=== PATIENT | male | born 1965 | race Caucasian/White ===

== ENCOUNTER → 2023-10-15 12:23 | Outpatient (CLI) | payer BC, SELFPAY ==
[2023-10-15 13:22] LABS: Basophils # 0.1 K/mm3 (0-0.2); Basophils % 1.4 % (0.1-2.0); Eosinophils # 0.2 K/mm3 (0.0-0.4); Eosinophils % 2.8 % (0.1-12.0); Hematocrit 46.6 % (42.0-52.0); Hemoglobin 16.2 g/dL (14.1-18.0); Lymphocytes # 2.7 K/mm3 (0.7-4.5); Lymphocytes % 40.8 % (10-50); Mean Corpuscular HGB Conc 34.7 g/dL (31.8-35.4); Mean Corpuscular Hemoglobin 33.3 pg (27.0-31.2); Mean Corpuscular Volume 95.9 fl (80-94); Mean Platelet Volume 8.6 fl (7.4-10.4); Monocytes # 0.5 K/mm3 (0.1-1.0); Monocytes % 7.6 % (1.7-9.3); Neutrophils # 3.2 K/mm3 (1.8-7.8); Neutrophils % 47.5 % (37.0-80.0); Platelet Count 264 K/mm3 (142-424); Red Blood Count 4.86 M/mm3 (4.60-6.20); Red Cell Distribution Width 12.9 % (11.5-17.5); White Blood Count 6.7 K/mm3 (4.8-10.8)
[2023-10-15 13:48] LABS: Alanine Aminotransferase 37 U/L (12-78); Albumin Level 4.4 g/dl (3.5-5.0); Albumin/Globulin Ratio 1.2 (1.1-1.8); Anion Gap 14.6 mEq/L (5-15); Aspartate Amino Transferase 42 U/L (17-59); Bilirubin,Total 0.6 mg/dl (0.2-1.3); Blood Urea Nitrogen 19 mg/dl (9-20); Calcium 8.9 mg/dl (8.4-10.2); Carbon Dioxide 26 mmol/L (22.0-30.0); Chloride 102 mmol/L (98-107); Cholesterol 181 mg/dl (140-200); Estimated Glomerular Filt Rate 62 ml/min (>60); GFR (African American) 75 ML/MIN (>60); Globulin 3.6 g/dL (1.3-3.2); Glucose 85 mg/dl (74-100); HDL Cholesterol 42 mg/dl (40-60); Potassium 4.6 mmoL/L (3.5-5.1); Sodium 138 mmol/L (136-145); Triglycerides 149 mg/dl (30-150); VLDL Cholesterol 30 mg/dL (0-40)
[2023-10-15 13:49] LABS: Alkaline Phosphatase 88 U/L (38-126); Chol/HDL Ratio 4.3 (1-3.5)
[2023-10-15 13:57] LABS: Erythrocyte Sedimentation Rate 13 mm/hr (0-20)
[2023-10-15 14:17] LABS: Prostate Specific Ag Screen 1.1 ng/ml (0.0-4.0); Thyroid Stimulating Hormone 1.04 uIU/mL (0.465-4.68)
[2023-10-15 14:53] LABS: Vitamin B12 512 pg/mL (239-931)
[2023-10-15 20:34] LABS: Hemoglobin A1C 5.3 % (4.0-6.0)
[2023-10-18 15:25] LABS: Albumin 3.9 g/dL (2.9-4.4); Alpha-1-Globulin 0.2 g/dL (0.0-0.4); Alpha-2-Globulin 0.7 g/dL (0.4-1.0); Gamma Globulin 1.8 g/dL (0.4-1.8); Protein, Total 7.7 g/dL (6.0-8.5)
== END ==
PROVIDERS: PCP Internal Medicine; Visit Provider Internal Medicine
DX: R53.83 Other fatigue (principal); L40.1 Generalized pustular psoriasis; E78.5 Hyperlipidemia, unspecified; G60.9 Hereditary and idiopathic neuropathy, unspecified; K21.9 Gastro-esophageal reflux disease without esophagitis; M47.812 Spondylosis without myelopathy or radiculopathy, cervical region; N40.1 Benign prostatic hyperplasia with lower urinary tract symptoms; Z12.5 Encounter for screening for malignant neoplasm of prostate
CPT/HCPCS: 80053; 80061; 82607; 82746; 83036; 84155; 84165; 84443; 85025; 85651; G0103

== ENCOUNTER 2025-04-14 10:36 | Outpatient (CLI) | payer BC, SELFPAY ==
--- OUTSIDE RECORDS SUMMARY | 2025-04-14 10:39 | XMS_ITS | Data Portability ---
Author Organization [facility] ONIEL Antoine [place] CLOSED Address [address] [facility] [facility] [address] [place] [address] Care Team Providers Care Gymnastics Instructor Name Role Phone AARON DUQUE Primary Care Provider [phone] YENNY NEVAREZ Customer Management Specialist Assessment No assessment recorded. Plan of Treatment Reminders Order Date Submit Date Provider Last Modified By Organization Details Last Modified Time Details Appointments FOLLOW UP DAK 2025 10:10A M YENNY NEVAREZ MD Not available Not available Not available Lab CBC w/ auto diff 2024 025 [id number] [facility], [address] [place] [address], [phone], 04/03/2025 15:55:04 CMP, serum or plasma 2024 025 [email or web address] [facility], [address] [place] [address], [phone], 04/03/2025 15:05:22 Mycobacte rium tuberculo sis stimulate d gamma interfero n, qual, blood 2024 025 [email or web address] [facility], [address] [place] [address], [phone], 04/03/2025 15:05:22 CMP, serum or plasma 2023 024 [email or web address] [facility], [address] [place] [address], [phone], 01/17/2024 08:01:50 CBC w/ auto diff [address] [facility], [address] [place] [address], [phone], 01/17/2024 08:01:50 Mycobacte rium tuberculo sis stimulate d gamma interfero n, qual, blood [address] [facility], [address] [place] [address], [address], 01/17/2024 08:01:50 Referral None recorded. Procedures None recorded. Surgeries None recorded. Imaging None recorded. Medication Orders None recorded. Patient TargetsNo targets recorded. Patient InstructionsNo instructions recorded. Reason for Referral None Reported. Procedures Surgical History Date Name Laterality Status Provider Name and Address Organization Details Recorded Time 01/16/20 25 Destruction Premalignant Lesion(s) completed Judy Muniz [facility] 01/15/2025 11:40:41 Imaging Results None recorded. Procedure Notes None recorded. Medical Equipment None Reported. Allergies No known drug allergies Medications Name Sig Start Date Stop Date Status Note LastModified by Organization Details LastModified Time Humira 40 mg/0.8 mL subcutaneous syringe kit active Not Available Not Available Not Available aspirin active Not Available Not Avail able Not Available Lipitor active Not Available Not Avail able Not Available omeprazole active Not Available Not Av ailable Not Available Humira(CF) 40 mg/0.4 mL subcutaneous syringe kit INJECT 40MG SUBCUTANEOU SLY EVERY OTHER WEEK 2024 active Not Available Not Available Not Avai lable Humira(CF) Pen 40 mg/0.4 mL subcutaneous kit INJECT 1 PEN UNDER THE SKIN EVERY 14 DAYS. 2022 active Not Available Not Available Not Avai lable Vitals None Recorded Social History None recorded. Functional Status None recorded. Mental Status None recorded. Family History Nothing Reported. Medical History No medical history recorded. Past Encounters Encounter ID Performer Location Encounter Start Date Encounter Closed Date Diagnosis/Indication Diagnosis SNOMED-CT Code Diagnosis ICD10 Code Diagnosis Note [id number] YENNY NEVAREZ MD [address] [address] [place] [address] 01/10/2024 10:37:09 01/10/2024 11:23:31 History of malignant neoplasm of skin 967969181 Z85.828 L90.5 - No evidence of recurrence today - Call with any worrisome lesions or if treated lesions return - Return at regular intervals for skin exam as recommende d Multiple b enign melanocytic nevi [id number] D22.5 - Benign lesions seen on exam today- SPF 30 or higher broad-spec trum sunscreen recommende d with re-applica tion every 2 hours- Discussed sun protection measures, including wide-brimm ed hat, sun-protec tive clothing, and avoidance of sun during peak hours of 10am-4pm- Avoid tanning beds as these can increase the chances of all 3 types of skin cancer- Instructed to monitor for changes and to call us for appointmen t with any changing or worrisome lesions Seborrheic keratosis 394 823242 L82.1 - Benign overgrowth s of skin - Hereditary Senile angioma 8566729 I 78.1 - Benign blood vessel growths - Hereditary Solar lentigo 64539026 L 81.4 - Benign brown spots - Sun-induce d Psoriasis 6027211 L40.0 Recommend continue HumiraAnnu al labs needed, slip given, will refill rx Humira once recievedDi scussed biosimilar Fup with change or concerns Actinic keratosis 336678 [address] today, no wound careFup with change or concerns [id number] YENNY NEVAREZ MD [address] [address] [place] [address] 01/15/2025 11:06:26 01/15/2025 12:01:14 History of malignant neoplasm of skin 731401354 Z85.828 L90.5 - No evidence of recurrence today - Call with any worrisome lesions or if treated lesions return - Return at regular intervals for skin exam as recommende d Multiple b enign melanocytic nevi 824535587 D22.5 - Benign lesions seen on exam today- SPF 30 or higher broad-spec trum sunscreen recommende d with re-applica tion every 2 hours- Discussed sun protection measures, including wide-brimm ed hat, sun-protec tive clothing, and avoidance of sun during peak hours of 10am-4pm- Instructed to monitor for changes and to call us for appointmen t with any changing or worrisome lesions Seborrheic keratosis 394 774880 L82.1 - Benign overgrowth s of skin - Hereditary Senile angioma 1699040 I 78.1 - Benign blood vessel growths - Hereditary Solar lentigo 91184495 L 81.4 - Benign brown spots - Sun-induce d Psoriasis 7401864 L40.0 The condition was discussed further.Re commend continuing Humira.Lab slip given CBC CMP qtb gold, will RF rx once received. Pt will bring to PCP appt.FUP with changes or concerns. Actinic keratosis [address]57[address] No wound care. FUP with changes or concerns. Health Concerns Section Related Observation LastModified by Organization Detai ls LastModified Time None Recorded Concern Status LastModified by Organization Details LastModified Time None Recorded Advance Directives Directive None Recorded Payers Insurance Date Sequence Insurance Name Policy Number Policy Evans Covered Member ID Evans Member ID Guarantor Name 01/10/2024 1 *SELF PAY* To alexis Murray 01/19/2025 1 [place] [id number] Zoila Murray [id number] Marino Murray Notes Date Note Type Note Provider Name and Address Organization Details Recorded Time 01/10/2024 text/html Annual skin exam Hx of BCC- L chest, R posterior shoulderHx of Psoriasis, Humira 40mg injection [id number] YENNY NEVAREZ MD [address] [place], [address], [facility] 01/10/2024 11:57:23 01/15/2025 text/html annualhx of BCC- L chest, R posterior shoulderhx of psoriasis - Humira 40mg injection [id number] spot on R nosespot on L postauricular YENNY NEVAREZ MD [address] [place], [address], [facility] 01/15/2025 11:50:54
[2025-04-14 11:32] LABS: Basophils # 0.1 K/mm3 (0-0.2); Basophils % 0.7 % (0.1-2.0); Eosinophils # 0.2 Kmm3 (0.0-0.4); Eosinophils % 2.1 % (0.1-12.0); Hematocrit 42.7 % (42.0-52.0); Hemoglobin 14.6 g/dL (14.1-18.0); Immature Granulocytes # 0.01 10^3uL; Immature Granulocytes % 0.1 %; Lymphocytes # 3.4 K/mm3 (0.7-4.5); Lymphocytes % 42.5 % (10-50); Mean Corpuscular HGB Conc 34.2 g/dL (31.8-35.4); Mean Corpuscular Hemoglobin 31.3 pg (27.0-31.2); Mean Corpuscular Volume 91.6 fl (80-94); Mean Platelet Volume 9.6 fl (7.4-10.4); Monocytes # 0.6 K/mm3 (0.1-1.0); Monocytes % 7.9 % (1.7-9.3); Neutrophils # 3.8 K/mm3 (1.8-7.8); Neutrophils % 46.7 % (37.0-80.0); Nucleated Red Blood Cells # 0 10^3/uL; Nucleated Red Blood Cells % 0 %; Platelet Count 260 K/mm3 (142-424); Red Blood Count 4.66 M/mm3 (4.60-6.20); Red Cell Distribution Width 12.4 % (11.5-17.5); Red Cell Distribution Width-SD 41.6 fL; White Blood Count 8.1 K/mm3 (4.8-10.8)
[2025-04-14 12:19] LABS: Alanine Aminotransferase 22 U/L (12-78); Albumin Level 4.1 g/dl (3.5-5.0); Albumin/Globulin Ratio 1.1 (1.1-1.8); Alkaline Phosphatase 118 U/L (38-126); Anion Gap 9.5 mEq/L (5-15); Aspartate Amino Transferase 32 U/L (17-59); Bilirubin,Total 0.5 mg/dl (0.2-1.3); Blood Urea Nitrogen 15 mg/dl (9-20); Calcium 8.8 mg/dl (8.4-10.2); Carbon Dioxide 27 mmol/L (22.0-30.0); Chloride 104 mmol/L (98-107); Estimated Glomerular Filt Rate 69 ml/min (>60); GFR (African American) 83 ML/MIN (>60); Globulin 3.9 g/dL (1.3-3.2); Glucose 119 mg/dl (74-100); Potassium 4.5 mmoL/L (3.5-5.1); Sodium 136 mmol/L (136-145)
[2025-04-17 19:18] LABS: QuantiFERON-TB Gold Plus Negative (Negative)
== END 2025-04-14 23:59 | disposition home or self-care (01) ==
LOC: LAB 10:38
PROVIDERS: PCP Internal Medicine; Visit Provider Dermatology Procedural Dermatology
DX: L40.0 Psoriasis vulgaris (principal)
CPT/HCPCS: 36415; 80053; 85025; 86480

== ENCOUNTER 2025-08-24 10:33 | Outpatient (CLI) | payer BC, SELFPAY ==
--- NOTE | 2025-08-24 10:35 | XR_ITS ---
FINAL REPORT CLINICAL HISTORY: Ankle injury, stepped in a hole and twisted ankle, swelling COMPARISON: None FINDINGS: Three views of the right ankle show no evidence of acute displaced fracture or dislocation of the visualized bony architecture. The joint spaces appear normal. IMPRESSION: Unremarkable exam. Reviewed, Interpreted and Dictated by Lian Castillo MD Transcribed by Julianna Baron Authenticated and [facility]
--- OUTSIDE RECORDS SUMMARY | 2025-08-24 10:36 | XMS_ITS | Data Portability ---
Author Organization [facility] LEO [place] CLOSED Address [address] [facility] [address] [place] [address] Care Team Providers Care Foreign Service Teacher Name Role Phone AARON DUQUE Primary Care Provider [phone] YENNY NEVAREZ 3Rd Mate Assessment No assessment recorded. Plan of Treatment Reminders Order Date Submit Date Provider Last Modified By Organization Details Last Modified Time Details Appointments FOLLOW UP DAK 2025 10:10A M YENNY NEVAREZ MD Not available Not available Not available Lab CBC w/ auto diff [address] [facility], [address] [place] [address], [phone], 04/03/2025 15:55:04 CMP, serum or plasma [address] [facility], [address] [place] [address], [phone], 04/03/2025 15:05:22 Mycobacte rium tuberculo sis stimulate d gamma interfero n, qual, blood [address] [facility], [address] [place] [address], [address], 04/03/2025 15:05:22 CMP, serum or plasma [email or web address] [facility], [address] [place] [address], [phone], 01/17/2024 08:01:50 CBC w/ auto diff [address] [facility], [address] [place] [address], [address], 01/17/2024 08:01:50 Mycobacte rium tuberculo sis stimulate d gamma interfero n, qual, blood [address] [facility], [address] [place] [address], [phone], 01/17/2024 08:01:50 Referral None recorded. Procedures None recorded. Surgeries None recorded. Imaging None recorded. Medication Orders None recorded. Patient TargetsNo targets recorded. Patient InstructionsNo instructions recorded. Reason for Referral None Reported. Results Created Date Observation Date Name Description Value Unit Range Abnormal Flag Note LastModifiedBy Organization Detail LastModifiedTime Result Notes None recorded. Procedures Surgical History Date Name Laterality Status Provider Name and Address Organization Details Recorded Time 01/16/20 25 Destruction Premalignant Lesion(s) completed Judy Muniz [facility] 01/15/2025 11:40:41 Imaging Results None recorded. [...] Not Available Not Available Not Avai lable Amjevita(CF) 40 mg/0.8 mL subcutaneous syringe Inject 40mg SQ every other week 2024 active Not Available Not Available Not Avai lable Amjevita(CF) 40 mg/0.4 mL subcutaneous syringe Inject 40 mg every 2 weeks by subcutaneou s route. 2024 active Not Available Not Available Not Avai lable Vitals None Recorded Social History None recorded. Functional Status None recorded. Mental Status None recorded. Family History Nothing Reported. Medical History No medical history recorded. Past Encounters Encounter ID Performer Location Encounter Start Date Encounter Closed Date Diagnosis/Indication Diagnosis SNOMED-CT Code Diagnosis ICD10 Code Diagnosis IMO Codes Diagnosis Note [id number] YENNY NEVAREZ MD [address] [address] 01/10/2024 10:37:09 01/10/2024 11:23:31 History of malignant neoplasm of skin 533461698 Z85.828 L90.5 - No evidence of recurrence today - Call with any worrisome lesions or if treated lesions return - Return at regular intervals for skin exam as recommende d Multiple b enign melanocytic nevi 928656133 D22.5 - Benign lesions seen on exam [...] changing or worrisome lesions Seborrheic keratosis 394 715218 L82.1 - Benign overgrowth s of skin - Hereditary Senile angioma 9805899 I 78.1 - Benign blood vessel growths - Hereditary Solar lentigo 02159566 L 81.4 - Benign brown spots - Sun-induce d Psoriasis 3327495 L40.0 Recommend continue HumiraAnnu al labs needed, slip given, will refill rx Humira once recievedDi scussed biosimilar Fup with change or concerns Actinic keratosis 354667 [address]57[address]2 today, no wound careFup with change or concerns [id number] YENNY NEVAREZ MD [address] [address] 01/15/2025 11:06:26 01/15/2025 12:01:14 History of malignant neoplasm of skin 035844920 Z85.828 L90.5 - No evidence of recurrence today - Call with any worrisome lesions or if treated lesions return - Return at regular intervals for skin exam as recommende d Multiple b enign melanocytic nevi 279055064 D22.5 - Benign lesions seen on exam [...] changing or worrisome lesions Seborrheic keratosis 394 136881 L82.1 - Benign overgrowth s of skin - Hereditary Senile angioma 7103241 I 78.1 - Benign blood vessel growths - Hereditary Solar lentigo 78089658 L 81.4 - Benign brown spots - Sun-induce d Psoriasis 0580303 L40.0 The condition was discussed further.Re commend [...] To alexis Murray 01/19/2025 1 [place] [id number] Zoila Murray [id number] 82 Marino Murray Notes Date Note Type Note Provider Name and Address Organization Details Recorded Time 01/10/2024 text/html Annual skin examHx of BCC- L chest, R posterior shoulderHx of Psoriasis, Humira 40mg injection [id number] YENNY NEVAREZ MD [address] [place], [address], [facility] 01/10/2024 11:57:23 01/15/2025 text/html annualhx of BCC- L chest, R posterior shoulderhx of psoriasis - Humira 40mg injection [id number] spot on R nosespot on L postauricular YENNY NEVAREZ MD [address] [place], [address], [facility] 01/15/2025 11:50:54
== END 2025-08-24 23:59 | disposition home or self-care (01) ==
LOC: RAD 10:33
PROVIDERS: PCP Internal Medicine; Visit Provider Internal Medicine
DX: S99.911A Unspecified injury of right ankle, initial encounter (principal); W18.42XA Slipping, tripping and stumbling without falling due to stepping into hole or opening, initial encounter
CPT/HCPCS: 73610

== ENCOUNTER 2025-09-27 10:20 | Outpatient (CLI) | payer BC, SELFPAY ==
[2025-09-27 14:06] LABS: Hematocrit 43.5 % (42.0-52.0); Hemoglobin 14.8 g/dL (14.1-18.0); Immature Granulocytes % 0.3 %; Mean Corpuscular HGB Conc 34.0 g/dL (31.8-35.4); Mean Corpuscular Hemoglobin 31.8 pg (27.0-31.2); Mean Corpuscular Volume 93.3 fl (80-94); Nucleated Red Blood Cells % 0 %; Platelet Count 307 K/mm3 (142-424); Red Blood Count 4.66 M/mm3 (4.60-6.20); Red Cell Distribution Width-SD 42.5 fL; White Blood Count 9.6 K/mm3 (4.8-10.8)
[2025-09-27 14:37] LABS: Alanine Aminotransferase 27 U/L (12-78); Albumin Level 4.8 g/dl (3.5-5.0); Albumin/Globulin Ratio 1.2 (1.1-1.8); Alkaline Phosphatase 150 U/L (38-126); Anion Gap 16.0 mEq/L (5-15); Aspartate Amino Transferase 35 U/L (17-59); Bilirubin,Total 0.8 mg/dl (0.2-1.3); Blood Urea Nitrogen 15 mg/dl (9-20); Calcium 9.8 mg/dl (8.4-10.2); Carbon Dioxide 26 mmol/L (22.0-30.0); Chloride 100 mmol/L (98-107); Cholesterol 149 mg/dl (140-200); Creatinine,Serum 1.00 mg/dl (0.66-1.25); Estimated Glomerular Filt Rate 76 ml/min (>60); GFR (African American) 92 ML/MIN (>60); Globulin 3.9 g/dL (1.3-3.2); Glucose 86 mg/dl (74-100); HDL Cholesterol 45 mg/dl (40-60); Potassium 5.0 mmoL/L (3.5-5.1); Sodium 137 mmol/L (136-145); Total Protein,Serum 8.7 g/dl (6.3-8.2); Triglycerides 95 mg/dl (30-150)
[2025-09-27 15:09] LABS: Thyroid Stimulating Hormone 0.88 uIU/mL (0.465-4.68)
[2025-09-27 15:45] LABS: Vitamin B12 412 pg/mL (239-931)
--- OUTSIDE RECORDS SUMMARY | 2025-09-28 13:52 | XMS_ITS | Data Portability ---
Author Organization [facility] LEO AntoineS [place] CLOSED Address [address] [facility] [place] [address] Care Team Providers Care Banquet Attendant Name Role Phone AARON DUQUE Primary Care Provider YENNY NEVAREZ Rail Track Maintainer Assessment No assessment recorded. Plan of Treatment Reminders Order Date Submit Date Provider Last Modified By Organization Details Last Modified Time Details Appointments FOLLOW UP DAK 2025 10:10A M YENNY NEVAREZ MD Not available Not available Not available Lab CBC w/ auto diff [address] [facility], [address] [place] [address], [address], 04/03/2025 15:55:04 CMP, serum or plasma [address] [facility], [address] [place] [address], [phone], 04/03/2025 15:05:22 Mycobacte rium tuberculo sis stimulate d gamma interfero n, qual, blood [address] [facility], [address] [place] [address], [address], 04/03/2025 15:05:22 CMP, serum or plasma 2023 024 [email or web address] [facility], [address] [place] [address], [address], 01/17/2024 08:01:50 CBC w/ auto diff [address] [facility], [address] [place] [address], [address], 01/17/2024 08:01:50 Mycobacte rium tuberculo sis stimulate d gamma interfero n, qual, blood [address] [facility], [address] [place] [address], [address], 01/17/2024 08:01:50 Referral None recorded. Procedures None [...] 25 Destruction Premalignant Lesion(s) completed Judy Muniz [facility] 01/15/2025 11:40:41 Imaging Results None recorded. [...] ICD10 Code Diagnosis IMO Codes Diagnosis Note [id number] YENNY NEVAREZ MD [address] [address] 01/10/2024 10:37:09 01/10/2024 11:23:31 History of malignant neoplasm of skin 245836460 Z85.828 L90.5 - No evidence of recurrence today - Call with any worrisome lesions or if treated lesions return - Return at regular intervals for skin exam as recommende d Multiple b enign melanocytic nevi 000246820 D22.5 - Benign lesions seen on exam [...] changing or worrisome lesions Seborrheic keratosis 394 018273 L82.1 - Benign overgrowth s of skin - Hereditary Senile angioma 4980202 I 78.1 - Benign blood vessel growths - Hereditary Solar lentigo 72061185 L 81.4 - Benign brown spots - Sun-induce d Psoriasis 4092328 L40.0 Recommend continue HumiraAnnu al labs needed, slip given, will refill rx Humira once recievedDi scussed biosimilar Fup with change or concerns Actinic keratosis 903301 [address]2 today, no wound careFup with change or concerns [id number] YENNY NEVAREZ MD [address] [address] 01/15/2025 11:06:26 01/15/2025 12:01:14 History of malignant neoplasm of skin 237298325 Z85.828 L90.5 - No evidence of recurrence today - Call with any worrisome lesions or if treated lesions return - Return at regular intervals for skin exam as recommende d Multiple b enign melanocytic nevi 253287759 D22.5 - Benign lesions seen on exam [...] changing or worrisome lesions Seborrheic keratosis 394 780937 L82.1 - Benign overgrowth s of skin - Hereditary Senile angioma 1865482 I 78.1 - Benign blood vessel growths - Hereditary Solar lentigo 74225132 L 81.4 - Benign brown spots - Sun-induce d Psoriasis 6831608 L40.0 The condition was discussed further.Re commend [...] To alexis Murray 01/19/2025 1 [place] [id number] Zoila Murray [id number] 82 Marino Murray Notes Date Note Type Note Provider Name and Address Organization Details Recorded Time 01/10/2024 text/html Annual skin examHx of BCC- L chest, R posterior shoulderHx of Psoriasis, Humira 40mg injection [id number] YENNY NEVAREZ MD [address] [place], [address], [facility] 01/10/2024 11:57:23 01/15/2025 text/html annualhx of BCC- L chest, R posterior shoulderhx of psoriasis - Humira 40mg injection [id number] spot on R nosespot on L postauricular YENNY NEVAREZ MD [address] [place], [address], [facility] 01/15/2025 11:50:54
== END 2025-09-27 23:59 ==
LOC: LAB.DROPOF 09-28 13:48
PROVIDERS: PCP Internal Medicine; Visit Provider Internal Medicine
DX: G62.9 Polyneuropathy, unspecified (principal); L40.9 Psoriasis, unspecified; E78.5 Hyperlipidemia, unspecified; Z12.5 Encounter for screening for malignant neoplasm of prostate
CPT/HCPCS: 80053; 80061; 82607; 84443; 85025; 85651; G0103

== ENCOUNTER 2025-10-22 08:51 | Day surgery (SDC) | payer BC, SELFPAY ==
--- NOTE | 2025-10-17 06:53 | P.HP_ITS ---
History of Present Illness *Admission Date: 10/22/25 *History of present illness: Mr. Murray is a 60-year-old gentleman who is here for screening colonoscopy. The examination is deemed medically necessary for screening colonoscopy. The patient has been seen, interviewed and examined prior to the procedure by both myself and the anesthesia provider. [facility] Disclaimer: The information contained in this section may have been updated after the patient was seen, as this information can be updated by other users. Medical History Osteoarthritis Psoriasis History of gastroesophageal reflux (GERD) Hyperlipidemia Skin cancer Encounter for screening for malignant neoplasm of colon Surgical History History of appendectomy Family History Sister Family history of cancer Brother Family history of acute heart failure Mother Family history of Alzheimer's disease Father Parkinson disease Brother Parkinson disease Social History (Updated 10/22/25 @ 09:29 by Modesta Leach CRNA) Smoking Status: Never smoker alcohol intake: current alcohol intake frequency: holidays/special occasions only substance use type: unknown current occupational status: employed Travel in the last 8 weeks?: None Have you lived/traveled outside US in past 30 days?: No Contact w/someone who lives/traveled outside US past 30 days?: No Exposure to someone with infectious disease in past 14 days?: No Do you have a fever (greater than 100.4 F or 38 C)?: No Have you tested positive for COVID-19?: No Exposed to someone with COVID-19 in past 14 days?: No Do you have a sore throat?: No Do you have a cough?: No Do you have any weakness?: No Are you experiencing any nausea/vomitting?: No Do you have any diarrhea?: No Are you experiencing any unusual bleeding?: No Do you have any muscle aches/pain?: No Do you have any abdominal pain?: No Are you experiencing loss of taste or smell?: No Other Medical History Have you received the Pneumonia Vaccine: No Review of Systems Review of Systems Review of systems (narrative): Negative *Cardiovascular Comments: Negative *Gastrointestinal Comments: Negative *Genitourinary Comments: Negative *Musculoskeletal Comments: Negative *Neurologic Comments: Negative Meds Home Medications and Allergies Home Medications ?Medication ?Instructions ?Recorded ?Confirmed ?Type trazodone 50 mg tablet 50 mg PO DAILY #90 tabs 04/0 01/0210/22/25 Rx atorvastatin 20 mg tablet See Rx Instructions .Route 0 06/25/25 10/22/25 Rx .COMPLEX #90 tabs omeprazole 20 mg capsule,delayed See Rx Instructions . Route 06/25/25 10/22/25 Rx release .COMPLEX #90 caps aspirin 81 mg tablet 81 mg PO DAILY 08/24/2510/08 History adalimumab-atto 40 mg/0.4 mL 40 mg SQ Q2W 09/27/25 History subcutaneous syringe (Amjevita(CF)) sodium,potassium,mag sulfates 17.5 See Rx Instructions PO .COMPLEX 10/09/25 10/22/25 Rx gram-3.13 gram-1.6 gram oral soln #354 mL (Suprep Bowel Prep Kit) New Prescriptions to Start Prescriptions: Allergies Allergy/AdvReac Type Severity Reaction Status Date / Time No Known Allergies Allergy Verified 10/22/25 09:05 Exam *Routine HEENT Exam Head: Present normocephalic Eye: Present EOMI and PERRL ENT: Present mucous membranes moist *Routine Neck Exam Neck: Present supple *Routine Respiratory Exam Respiratory: Present CTA bilaterally *Routine Cardiovascular Exam Cardiovascular: Present RRR *Routine Abdominal Exam Abdominal: Present soft and normoactive bowel sounds; Absent tenderness *Routine Rectal Exam Rectal:: deferred *Routine Genitalia Exam Genitalia:: deferred *Routine Extremities Exam Extremities: Absent cyanosis, clubbing or edema *Routine Skin Exam Skin: Present warm; Absent rash *Routine Neurological Exam Neurological: Present alert and oriented X3 Assessment and Plan *Assessment and plan (1) Screening for colon cancer: Status: Acute Category: Medical Code(s): Z12.11 - Encounter for screening for malignant neoplasm of colon Plan A/P: 1. Screening for colon cancer is the preprocedural diagnosis. The patient will be anesthetized/sedated using MAC sedation. The patient has been seen and examined. Cardiac and lung assessment prior to the examination is stable. Proceed with planned screening colonoscopy.
[2025-10-19 14:52] VITALS: BMI 27.1
--- NOTE | 2025-10-22 06:44 | HMH.PROCNOTE ---
[facility] Procedure Note Date: 10/22/25 Time: 10:15 Procedure Note:: Colonoscopy Procedure Report: Colonoscopy Endoscopist: Eron Wallis II, MD Referring physician: Praveen Limon MD Date of Procedure: October 22, 2025 Equipment: Olympus [id number] adult colonoscope Sedation: MAC sedation Indication: Mr. Murray is a 60-year-old gentleman who is here for initial screening colonoscopy. The patient reports no abdominal pain, weight loss, change in his bowel habits or rectal bleeding. He reports no family history of colon cancer. The examination is deemed medically necessary for screening colonoscopy. Procedure: Prior to the procedure, a history and physical exam was performed, and patient's medications and allergies were reviewed. The risks, benefits and alternatives of the sedation and procedure were discussed with the patient. All questions were answered and informed consent was obtained. The patient was brought to the procedure room. Patient identification and proposed procedure were verified by the physician and the nurse. The patient was placed in a left lateral decubitus position and the scope was passed under direct vision. Throughout the procedure, the patient's blood pressure, pulse, and oxygen saturations were monitored continuously. The colonoscopy was accomplished without difficulty. The patient tolerated the procedure well. Findings: On digital rectal examination there was normal rectal tone. There were no external hemorrhoids. The prostate was 2+, smooth, soft, mildly asymmetric without nodules. The colonoscope was introduced through the anal canal to the rectum and advanced to the cecum. The ileocecal valve and appendiceal orifice were identified. The scope was advanced a short distance into the ileum which appeared grossly normal. The scope was then withdrawn into the colon. The cecum, ascending, transverse, descending, sigmoid and rectum were grossly normal. There were no mucosal abnormalities identified. Upon retroflexion within the rectum there were grade 1 internal hemorrhoids. The preparation was excellent throughout with [place] Preparation Score of 9. The cecal time was 10 minutes. Impression: 1. Normal colonoscopy with intubation of the terminal ileum Plan: The patient will not require screening/surveillance colonoscopy again for 10 years by ACS guidelines.
[2025-10-22 09:08] VITALS: BP 152/89; PULSE 106; RESP 18; TEMP 36.1; O2SAT 94; BMI 27.1
[2025-10-22] MEDS: LACTATED RINGERS 1000ML 1,000 ML 50 ML IV (09:18)
--- NOTE | 2025-10-22 09:29 | P.PNANES_ITS ---
[facility] Disclaimer: The information contained in this section may have been updated after the patient was seen, as this information can be updated by other users. Medical History Osteoarthritis Psoriasis History of gastroesophageal reflux (GERD) Hyperlipidemia Skin cancer Encounter for screening for malignant neoplasm of colon Surgical History History of appendectomy Family History Sister Family history of cancer Brother Family history of acute heart failure Mother Family history of Alzheimer's disease Father Parkinson disease Brother Parkinson disease Social History Smoking Status: Never smoker alcohol intake: current alcohol intake frequency: holidays/special occasions only substance use type: unknown current occupational status: employed Travel in the last 8 weeks?: None [facility] Anesthesia Checklist Patient Identification Patient Identification: Arm Band and Verbal (Name & ) Structural Data Admitted From: Home Planned Operative Procedure/s: colonscopy Consent for Planned Operative Procedure(s) Verified: Yes Verified Documents: Surgical Consent and History and Physical NPO Status Verified Time NPO: 00:00 Additional verifications Anesthesia Reactions: No Previous Colonoscopy: No Airway Assessment Mallampati Score:: Class II C-Spine Mobility Assessed: No TMJ Mobility Assessed: No Dentition: Good Dentition Neurological Assessment Level of Consciousness: Awake, Alert and Appropriate Anesthesia Plan Anesthesia Risk discussed: Yes Anesthesia Plan: Verified ASA Class: II Anesthesia Type: MAC
[2025-10-22 10:18] VITALS: BP 104/80; PULSE 86; RESP 18; TEMP 36.2; O2SAT 95
[2025-10-22 10:28] VITALS: BP 101/82; PULSE 84; O2SAT 92
[2025-10-22 10:38] VITALS: BP 113/73; PULSE 77; O2SAT 95
[2025-10-22 10:48] VITALS: BP 117/69; PULSE 79; O2SAT 95
== END 2025-10-22 10:48 | disposition home or self-care (01) ==
PROVIDERS: PCP Internal Medicine; Visit Provider Internal Medicine Gastroenterology
PROC: 0DJD8ZZ Inspection of Lower Intestinal Tract, Via Natural or Artificial Opening Endoscopic (ICD-10-PCS; CPT 45378; principal; 2025-10-22 10:30)
DX: Z12.11 Encounter for screening for malignant neoplasm of colon (principal); K64.0 First degree hemorrhoids; E78.5 Hyperlipidemia, unspecified; M19.90 Unspecified osteoarthritis, unspecified site; Z79.82 Long term (current) use of aspirin
CPT/HCPCS: 45378; J2003; J2704; J7120